=== PATIENT | male | born 1960 | race Caucasian/White ===

== ENCOUNTER 2018-12-27 13:54 | Emergency (ER) | payer MEDICARE, OTHER ==
[~2018-12-27] VITALS: Ht 185.4 cm; Wt 127.0 kg
[~2018-12-27 13:54] MED LIST: CARBAMAZEPINE200 MG PO; CHLORPROMAZINE100 MG PO; CLONAZEPAM1 MG PO; CRESTOR10 MG PO; FENOFIBRATE134 MG PO; INVEGA SUS234 MG/1.5 SQ; METOPROLOL SUCC25 MG PO; TRAZODONE HCL100 MG PO
--- OUTSIDE RECORDS SUMMARY | 2018-12-27 13:58 | XMS REPORT | Summary of Care ---
Author Author [facility] Organization [facility] Address Unknown Phone Unavailable Encounter KAILYN Wesley(SHERRILL) [phone] Date(s): 01/01/17 - 01/02/17 [facility] [id number] [place] [address]- [phone] Discharge Diagnosis: Atrial fibrillation with RVR Discharge Disposition: Home or Self Care Attending Physician: Jolly Rich DO Vital Signs 1 2 3 Most recent to oldest [Reference Range]: 185.42 cm (01/01/17 10:50 PM) Height 98.6 DegF (01/02/17 3:05 AM) 98.6 DegF (01/01/17 10:50 PM) Temperature Oral [96.4-99.1 DegF] 122/68 mmHg (01/02/17 3:05 AM) 133/90 mmHg (01/02/17 12:01 AM) 133/90 mmHg (01/01/17 11:35 PM) Blood Pressure [90-140/60-90 mmHg] 20 BRMIN (01/02/17 3:05 AM) 22 BRMIN *HI* (01/02/17 12:12 AM) 32 BRMIN *HI* (01/02/17 12:01 AM) Respiratory Rate [14-20 BRMIN] 92 bpm (01/02/17 3:05 AM) 134 bpm *HI* (01/01/17 11:35 PM) 125 bpm *HI* (01/01/17 10:50 PM) Peripheral Pulse Rate [60-100 bpm] 104.545 kg (01/01/17 10:50 PM) Weight 30.41 m2 (01/01/17 10:50 PM) Body Mass Index Problem List Condition Effective Dates Status Health Status Informant HTN Active (hypertension)(Confi rmed) TN (myocardial Resolved infarction)(Confirme d) Schizophrenia(Confir Active med) Allergies, Adverse Reactions, Alerts Substance Reaction Severity Status acetaminophen Ibuprofen Active aspirin Active NKDA Active Medications Cardizem 25 mg, 5 mL, Route: IVP, Drug form: INJ, ONCE, Dosing Weight 104.545, kg, Priori ty: STAT, Start date: 01/01/17 23:44:00 TRANSPORTATION MANAGER, Stop date: 01/01/17 23:44:00 TRANSPORTATION MANAGER Notes: (Same as: Cardizem) Start Date: 01/01/17 Stop Date: 01/02/17 Status: Completed Results ELECTROLYTES Most recent to 1 oldest [Reference Range]: Sodium Lvl [135-145 141 mEq/L mEq/L] (01/01/17 11:33 PM) Potassium Lvl 5.1 mEq/L [3.5-5.1 mEq/L] (01/01/17 11:33 PM) Chloride Lvl [95-109 108 mEq/L mEq/L] (01/01/17 11:33 PM) CO2 [24-32 mEq/L] 25 mEq/L (01/01/17 11:33 PM) AGAP [10.0-20.0 13.1 mEq/L mEq/L] (01/01/17 11:33 PM) CHEM PANEL Most recent to 1 oldest [Reference Range]: Creatinine Lvl 0.79 mg/dL [0.50-1.40 mg/dL] (01/01/17 11:33 PM) eGFR 102 mL/min/1.73m2 1 *NA* (01/01/17 11:33 PM) BUN [7-22 mg/dL] 9 mg/dL (01/01/17 11:33 PM) B/C Ratio [6-25] 11 (01/01/17 11:33 PM) Glucose Lvl [70-99 89 mg/dL mg/dL] (01/01/17 11:33 PM) Total Protein 7.0 g/dL [6.4-8.4 g/dL] (01/01/17 11:33 PM) Albumin Lvl [3.5-5.0 3.6 g/dL g/dL] (01/01/17 11:33 PM) Globulin [2.7-4.2 3.4 g/dL g/dL] (01/01/17 11:33 PM) A/G Ratio [0.7-1.6] 1.1 (01/01/17 11:33 PM) Calcium Lvl 8.5 mg/dL [8.5-10.5 mg/dL] (01/01/17 11:33 PM) ALT [0-65 unit/L] 27 unit/L (01/01/17 11:33 PM) AST [0-37 unit/L] 35 unit/L (01/01/17 11:33 PM) Alk Phos [39-136 79 unit/L unit/L] (01/01/17 11:33 PM) Bili Total [0.2-1.3 0.3 mg/dL mg/dL] (01/01/17 11:33 PM) 1Result Comment: The eGFR is calculated using the CKD-EPI formula. In most young, healthy individuals the eGFR will be >90 mL/min/1.73m2. The eGFR declines with age. An eGFR of 60-89 may be normal in some populations, particularly the elderly, for whom the CKD-EPI formula has not been extensively validated. Use of the eGFR is not recommended in the following populations: Individuals with unstable creatinine concentrations, including patients and those with serious co-morbid conditions. Patients with extremes in muscle mass or diet. The data above are obtained from the National Kidney Disease Education Program ( NKDEP) which additionally recommends that when the eGFR is used in patients with extremes of body mass index for purposes of drug dosing, the eGFR should be mul tiplied by the estimated BMI. CARDIAC ENZYMES Most recent to 1 oldest [Reference Range]: Total CK [12-191 337 unit/L unit/L] *HI* (01/01/17 11:33 PM) CK MB [0.5-3.6 3.1 ng/mL ng/mL] (01/01/17 11:33 PM) CK MB Index 0.9 [0.0-2.5] (01/01/17 11:33 PM) Troponin-I <0.02 ng/mL [0.00-0.40 ng/mL] (01/01/17 11:33 PM) BNP [<=100 pg/mL] 36 pg/mL (01/01/17 11:33 PM) DRUG SCREEN Most recent to 1 oldest [Reference Range]: U Amph Scr Negative [Negative] (01/01/17 11:34 PM) U Shira Scr Negative [Negative] (01/01/17 11:34 PM) U Benzodia Scr Negative [Negative] (01/01/17 11:34 PM) U Cocaine Scr Negative [Negative] (01/01/17 11:34 PM) U Opiate Scr Negative [Negative] (01/01/17 11:34 PM) U Phencyc Scr Negative [Negative] (01/01/17 11:34 PM) U Cannab Scr Negative [Negative] (01/01/17 11:34 PM) UDS Note See Note (01/01/17 11:34 PM) URINE AND STOOL Most recent to 1 oldest [Reference Range]: UA Turbidity [Clear] Clear (01/01/17 11:33 PM) UA Color Ltyellow *NA* (01/01/17 11:33 PM) UA pH [5.0-8.0] 7.0 (01/01/17 11:33 PM) UA Spec Grav 1.009 [<=1.030] (01/01/17 11:33 PM) UA Glucose [Negative Negative mg/dL mg/dL] *NA* (01/01/17 11:33 PM) UA Blood [Negative] Negative (01/01/17 11:33 PM) UA Ketones [Negative Negative mg/dL mg/dL] *NA* (01/01/17 11:33 PM) UA Protein [Negative Negative mg/dL mg/dL] (01/01/17 11:33 PM) UA Urobilinogen <=1.0 mg/dL [0.1-1.0 mg/dL] *NA* (01/01/17 11:33 PM) UA Bili [Negative] Negative *NA* (01/01/17 11:33 PM) UA Leuk Est Negative [Negative] (01/01/17 11:33 PM) UA Nitrite Negative [Negative] (01/01/17 11:33 PM) UA WBC [0-5 /HPF] <1 /HPF (01/01/17 11:33 PM) UA RBC [0-2 /HPF] <1 /HPF (01/01/17 11:33 PM) UA Sq Epi None Seen *NA* (01/01/17 11:33 PM) HEMATOLOGY Most recent to 1 oldest [Reference Range]: WBC [3.7-10.4 K/CMM] 12.0 K/CMM *HI* (01/01/17:33 PM) RBC [4.70-6.10 6.10 M/CMM M/CMM] (01/01/17:33 PM) Hgb [14.0-18.0 g/dL] 19.0 g/dL *HI* (01/01/1733 PM) Hct [42.0-54.0 %] 55.7 % *HI* (01/01/17:33 PM) MCV [80.0-94.0 fL] 91.2 fL (01/01/17: PM) MCH [27.0-31.0 pg] 31.1 pg *HI* (01/01/17:33 PM) MCHC [32.0-36.0 34.1 g/dL g/dL] (01/01/17:33 PM) RDW [11.5-14.5 %] 13.0 % (01/01/17:33 PM) Platelet [133-450 201 K/CMM K/CMM] (01/01/17:33 PM) MPV [7.4-10.4 fL] 8.1 fL (01/01/17:33 PM) Segs [45.0-75.0 %] 60.2 % (01/01/17:33 PM) Lymphocytes 26.5 % [20.0-40.0 %] (01/01/17:33 PM) Monocytes [2.0-12.0 9.9 % %] (01/01/17 11:33 PM) Eosinophils [0.0-4.0 2.2 % %] (01/01/17 11:33 PM) Basophils [0.0-1.0 1.2 % %] *HI* (01/01/17:33 PM) Segs-Bands # 7.2 K/CMM [1.5-8.1 K/CMM] (01/01/17:33 PM) Lymphocytes # 3.2 K/CMM [1.0-5.5 K/CMM] (01/01/17 11:33 PM) Monocytes # [0.0-0.8 1.2 K/CMM K/CMM] *HI* (01/01/17 11:33 PM) Eosinophils # 0.3 K/CMM [0.0-0.5 K/CMM] (01/01/17 11:33 PM) Basophils # [0.0-0.2 0.1 K/CMM K/CMM] (01/01/17 11:33 PM) PT [12.0-14.7 12.0 seconds seconds] (01/02/17 12:12 AM) INR [0.85-1.17] 0.87 (01/02/17 12:12 AM) PTT [22.9-35.8 30.1 seconds seconds] (01/02/17 12:12 AM) Immunizations Given and Recorded Vaccine Date Status Refusal Reason diphtheria/pertussis, acel/tetanus adult 11/24/14 Given Procedures No data available for this section Social History Social History Type Response Substance Abuse Use: None. Alcohol Never Smoking Status Current every day smoker; Type: Cigarettes; Exposure to Tobacco Smoke Unable to obtain; Cigarette Smoking Last 365 Days Yes; Reg Smoking Cessation Counseling No Assessment and Plan No data available for this section
--- OUTSIDE RECORDS SUMMARY | 2018-12-27 13:58 | XMS REPORT | Continuity of Care Document ---
Author Author [facility] Interface Address Unknown Phone Unavailable Problems Problem Status Onset Date Classification Date Reported Comments Source Discharge Diagnosis: Atrial fibrillation with RVR 01/02/2017 01/05/2017 [facility] A FIB Active 01/01/2017 [facility] HTN (<span ID="[id number]">Confirmed</span>) Active Problem 01/05/2017 [facility] HI (<span ID="[id number]">Confirmed</span>) Resolved Problem 01/05/2017 [facility] Schizophrenia Active Problem 01/05/2017 [facility] Medications Medication Details Route Status Patient Instructions Ordering Provider Order Date Source Cardizem 25 mg, 5 mL, Route: IVP, Drug form: INJ, ONCE, Dosing Weight 104.545, kg, Priority: STAT, Start date: 01/01/17 23:44:00 CISSP, Stop date: 01/01/17 23:44:00 CSTNotes: (Same as: Cardizem) No Longer Active 01/02/2017 [facility] Allergies, Adverse Reactions, Alerts Substance Category Reaction Severity Reaction type Status Date Reported Comments Source acetaminophen Assertion Ibuprofen Drug allergy Active [facility] aspirin Assertion Drug allergy Active [facility] Immunizations Immunization Date Given Site Status Last Updated Comments Source diphtheria/pertussis, acel/tetanus adult 11/25/2014 Right Deltoid completed Leah [facility] Results Order Name Results Value Reference Range Date Interpretation Comments Source HEMATOLOGY PTT 30.1 s 22.9 - 35.8 01/02/2017 [facility] HEMATOLOGY PT 12.0 s 12.0 - 14.7 01/02/2017 [facility] HEMATOLOGY INR 0.87 0.85 - 1.17 01/02/2017 [facility] DRUG SCREEN U Cocaine Scr Negative (01/01/17 11:34 PM) Negative 01/02/2017 [facility] DRUG SCREEN U Benzodia Scr Negative (01/01/17 11:34 PM) Negative 01/02/2017 [facility] DRUG SCREEN UDS Note See Note (01/01/17 11:34 PM) 01/02/2017 [facility] DRUG SCREEN U Phencyc Scr Negative (01/01/17 11:34 PM) Negative 01/02/2017 [facility] DRUG SCREEN U Opiate Scr Negative (01/01/17 11:34 PM) Negative 01/02/2017 [facility] DRUG SCREEN U Cannab Scr Negative (01/01/17 11:34 PM) Negative 01/02/2017 [facility] DRUG SCREEN U Amph Scr Negative (01/01/17 11:34 PM) Negative 01/02/2017 [facility] DRUG SCREEN U Shira Scr Negative (01/01/17 11:34 PM) Negative 01/02/2017 [facility] CARDIAC ENZYMES CK MB Index 0.9 0.0 - 2.5 01/02/2017 [facility] CARDIAC ENZYMES Troponin-I null 0.00 - 0.40 01/02/2017 [facility] CARDIAC ENZYMES Total CK 337 unit/L 12 - 191 01/02/2017 [facility] CARDIAC ENZYMES CK MB 3.1 ng/mL 0.5 - 3.6 01/02/2017 [facility] CARDIAC ENZYMES BNP 36 pg/mL <=100 pg/mL 01/02/2017 [facility] CHEM PANEL eGFR 102 mL/min/1.73m2 01/02/2017 Result Comment: The eGFR is calculated using the [...] from the National Kidney Disease Education Program (NKDEP) which additionally recommends that when the eGFR is used in patients with extremes of body mass index for purposes of drug dosing, the eGFR should be multiplied by the estimated BMI. [facility] CHEM PANEL A/G Ratio 1.1 0.7 - 1.6 01/02/2017 [facility] CHEM PANEL Alk Phos 79 unit/L 39 - 136 01/02/2017 [facility] CHEM PANEL Bili Total 0.3 mg/dL 0.2 - 1.3 01/02/2017 [facility] CHEM PANEL AST 35 unit/L 0 - 37 01/02/2017 [facility] CHEM PANEL AGAP 13.1 meq/L 10.0 - 20.0 01/02/2017 [facility] CHEM PANEL B/C Ratio 11 6 - 25 01/02/2017 [facility] CHEM PANEL Albumin Lvl 3.6 g/dL 3.5 - 5.0 01/02/2017 [facility] CHEM PANEL ALT 27 unit/L 0 - 65 01/02/2017 [facility] CHEM PANEL Total Protein 7.0 g/dL 6.4 - 8.4 01/02/2017 [facility] CHEM PANEL Potassium Lvl 5.1 meq/L 3.5 - 5.1 01/02/2017 [facility] CHEM PANEL Chloride Lvl 108 meq/L 95 - 109 01/02/2017 [facility] CHEM PANEL CO2 25 meq/L 24 - 32 01/02/2017 [facility] CHEM PANEL Calcium Lvl 8.5 mg/dL 8.5 - 10.5 01/02/2017 [facility] CHEM PANEL Sodium Lvl 141 meq/L 135 - 145 01/02/2017 [facility] CHEM PANEL Glucose Lvl 89 mg/dL 70 - 99 01/02/2017 [facility] CHEM PANEL BUN 9 mg/dL 7 - 22 01/02/2017 [facility] CHEM PANEL Globulin 3.4 g/dL 2.7 - 4.2 01/02/2017 [facility] CHEM PANEL Creatinine Lvl 0.79 mg/dL 0.50 - 1.40 01/02/2017 [facility] HEMATOLOGY Monocytes 9.9 % 2.0 - 12.0 01/02/2017 [facility] HEMATOLOGY Basophils # 0.1 K/CMM 0.0 - 0.2 01/02/2017 [facility] HEMATOLOGY Eosinophils # 0.3 K/CMM 0.0 - 0.5 01/02/2017 [facility] HEMATOLOGY Monocytes # 1.2 K/CMM 0.0 - 0.8 01/02/2017 [facility] HEMATOLOGY Lymphocytes 26.5 % 20.0 - 40.0 01/02/2017 [facility] HEMATOLOGY Segs 60.2 % 45.0 - 75.0 01/02/2017 [facility] HEMATOLOGY Lymphocytes # 3.2 K/CMM 1.0 - 5.5 01/02/2017 [facility] HEMATOLOGY Segs-Bands # 7.2 K/CMM 1.5 - 8.1 01/02/2017 [facility] HEMATOLOGY Basophils 1.2 % 0.0 - 1.0 01/02/2017 [facility] HEMATOLOGY Eosinophils 2.2 % 0.0 - 4.0 01/02/2017 [facility] MCHC 34.1 g/dL 32.0 - 36.0 01/02/2017 [facility] HEMATOLOGY RDW 13.0 % 11.5 - 14.5 01/02/2017 [facility] HEMATOLOGY Platelet 201 K/CMM 133 - 450 01/02/2017 [facility] MPV 8.1 fL 7.4 - 10.4 01/02/2017 [facility] MCH 31.1 pg 27.0 - 31.0 01/02/2017 [facility] Hgb 19.0 g/dL 14.0 - 18.0 01/02/2017 [facility] Hct 55.7 % 42.0 - 54.0 01/02/2017 [facility] MCV 91.2 fL 80.0 - 94.0 01/02/2017 [facility] WBC 12.0 K/CMM 3.7 - 10.4 01/02/2017 [facility] RBC 6.10 M/CMM 4.70 - 6.10 01/02/2017 [facility] URINE AND STOOL UA Color Ltyellow 01/02/2017 [facility] URINE AND STOOL UA Urobilinogen <=1.0 mg/dL 0.1 - 1.0 01/02/2017 [facility] URINE AND STOOL UA Sq Epi None Seen 01/02/2017 [facility] URINE AND STOOL UA Spec Grav 1.009 <=1.030 01/02/2017 [facility] URINE AND STOOL UA Turbidity Clear (01/01/17 11:33 PM) Clear 01/02/2017 [facility] URINE AND STOOL UA RBC null 0 - 2 01/02/2017 [facility] URINE AND STOOL UA Glucose Negative mg/dL Negative mg/dL 01/02/2017 [facility] URINE AND STOOL UA Ketones Negative mg/dL Negative mg/dL 01/02/2017 [facility] URINE AND STOOL UA Bili Negative *NA* (01/01/17 11:33 PM) Negative 01/02/2017 [facility] URINE AND STOOL UA WBC null 0 - 5 01/02/2017 [facility] URINE AND STOOL UA Leuk Est Negative (01/01/17 11:33 PM) Negative 01/02/2017 [facility] URINE AND STOOL UA Protein Negative mg/dL Negative mg/dL 01/02/2017 [facility] URINE AND STOOL UA Nitrite Negative (01/01/17 11:33 PM) Negative 01/02/2017 [facility] URINE AND STOOL UA Blood Negative (01/01/17 11:33 PM) Negative 01/02/2017 [facility] URINE AND STOOL UA pH 7.0 5.0 - 8.0 01/02/2017 [facility] Chest 1view DX Chest 1view DX Patient Name: JOANN FORD : 1960; Age: 56 years y/o Male MR: [id number] Study: Chest 1view DX dated 01/01/2017. Clinical Indication: Chest pain; Comparison: None Heart size is normal. Aortic calcification. Mediastinal structures otherwise unremarkable. Slight atelectasis in the lateral left lung base. No other focal infiltrate identified within the lungs, no edema and no pneumothorax. SL: TRINA 01/01/2017 - - Read by: Alan Jaramillo MD Dictated Date/time: 01/01/17 23:49 Electronically Signed by: Alan Jaramillo MD 01/01/17 23:50 FINAL REPORT [facility] Vital Signs Vital Sign Value Date Comments Source Systolic (mm Hg) 122 01/02/2017 [facility] Diastolic (mm Hg) 68 01/02/2017 [facility] Respitory Rate 20 01/02/2017 [facility] Temperature Oral (F) 98.6 F 01/02/2017 [facility] Heart Rate 92 01/02/2017 [facility] Respitory Rate 22 01/02/2017 [facility] Respitory Rate 32 01/02/2017 [facility] Systolic (mm Hg) 133 01/02/2017 [facility] Diastolic (mm Hg) 90 01/02/2017 [facility] Heart Rate 134 01/02/2017 [facility] Systolic (mm Hg) 133 01/02/2017 [facility] Diastolic (mm Hg) 90 01/02/2017 [facility] Heart Rate 125 01/02/2017 [facility] Temperature Oral (F) 98.6 F 01/02/2017 [facility] Height 185.42 cm 01/02/2017 [facility] Weight 104.545 01/02/2017 [facility] BMI Calculated 30.41 01/02/2017 [facility] Encounters Location Location Details Encounter Type Encounter Number Reason For Visit Attending Provider ADM Date DC Date Status Source Outpatient [id number] ALEJANDRO LEBRON 04/25/2015 Active [facility] [id number] Jolly Rich 01/02/2017 01/02/2017 [facility] [id number] HEATHER RICH 07/15/2017 Active [facility] Procedures Procedure Code Date Perfomer Comments Source
--- NOTE | 2018-12-27 15:57 | Diagnostic Imaging Report ---
EXAMINATION: PA and lateral views of the chest. COMPARISON: None CLINICAL HISTORY: Pain DISCUSSION: Lines/tubes: None. Lungs: The lungs are well inflated and clear. No pneumonia or pulmonary edema. Pleura: No pleural effusion or pneumothorax. Heart and mediastinum: The cardiomediastinal silhouette is normal. Bones and soft tissues: No acute bony abnormalities. IMPRESSION: No acute cardiopulmonary abnormalities. Signed by: Dr. Vikas Dunn M.D. on 12/27/2018 3:54 PM
[2018-12-27] MEDS ORDERED: ASPIRIN81 MG (15:58)
--- NOTE | 2018-12-27 17:50 | Diagnostic Imaging Report ---
EXAMINATION: CT scan of the chest with contrast. TECHNIQUE: Helical CT images of the chest were performed from the lung apices to the level of the adrenal glands after the intravenous administration of 100 cc of Omnipaque 300. Coronal and sagittal reformatted images were obtained.Dose modulation, iterative reconstruction, and/or weight based adjustment of the mA/kV was utilized to reduce the radiation dose to as low as reasonably achievable. COMPARISON: None. CLINICAL HISTORY:Chest pain DISCUSSION: LINES/TUBES: None. LUNGS AND AIRWAYS: No pulmonary embolism. No consolidation. Groundglass attenuation of the lung hypoinflation. PLEURA: No pneumothorax or pleural effusions. HEART AND MEDIASTINUM: The thyroid gland is normal. The heart and pericardium are within normal limits. LYMPH NODES: There is no mediastinal, hilar or axillary lymphadenopathy. ABDOMEN: Simple right renal cyst. BONES AND SOFT TISSUES: No acute bony abnormalities. IMPRESSION: No pulmonary embolism Signed by: Dr. Vikas Dunn M.D. on 12/27/2018 5:47 PM
[2018-12-27 18:43] VITALS: BP 139/92
== END 2018-12-27 18:40 | disposition home or self-care (01) ==
LOC: FSED 13:54
DX: R07.89 Other chest pain (principal); I10 Essential (primary) hypertension; J44.9 Chronic obstructive pulmonary disease, unspecified; I48.91 Unspecified atrial fibrillation; F20.9 Schizophrenia, unspecified; F17.210 Nicotine dependence, cigarettes, uncomplicated
CPT/HCPCS: 71046; 71275; 80053; 81003; 83880; 84484; 85025; 85610; 93005; 99284

== ENCOUNTER 2022-06-29 16:33 | Emergency (ER) | payer MEDICARE, OTHER ==
[~2022-06-29] VITALS: Ht 180.3 cm; Wt 101.4 kg
[~2022-06-29 16:33] MED LIST changes: +ASPIRIN81 MG
[2022-06-29] MEDS ORDERED: TEGRETOL200 MG PO (16:58)
[2022-06-29] MEDS ORDERED: ATORVASTATIN CA20 MG PO (16:58)
[2022-06-29] MEDS ORDERED: NEURONTIN400 MG PO (16:58)
[2022-06-29] MEDS ORDERED: DIGOXIN125 MCG PO (17:03)
[2022-06-29] MEDS ORDERED: TRAMADOL HCL E100 MG (17:23)
== END 2022-06-29 18:32 | disposition home or self-care (01) ==
LOC: FSED 16:55
DX: R07.89 Other chest pain (principal); S20.211A Contusion of right front wall of thorax, initial encounter; W20.8XXA Other cause of strike by thrown, projected or falling object, initial encounter; Y92.89 Other specified places as the place of occurrence of the external cause; F17.210 Nicotine dependence, cigarettes, uncomplicated
CPT/HCPCS: 71101; 99283

== ENCOUNTER 2022-08-11 16:18 | Emergency (ER) | payer MEDICARE, OTHER ==
[~2022-08-11] VITALS: Ht 180.3 cm; Wt 99.4 kg
[~2022-08-11 16:18] MED LIST changes: +ATORVASTATIN CA20 MG PO; +DIGOXIN125 MCG PO; +NEURONTIN400 MG PO; +TEGRETOL200 MG PO; +TRAMADOL HCL E100 MG
[2022-08-11] MEDS ORDERED: ULTRAM 50MG50 MG PO (16:44)
[2022-08-11] MEDS ORDERED: PREDNISONE50 MG PO (16:44)
[2022-08-11] MEDS ORDERED: CLONAZEPAM0.5 MG PO (16:46)
== END 2022-08-11 16:52 | disposition home or self-care (01) ==
LOC: FSED 16:46
DX: M54.50 Low back pain, unspecified (principal); X50.0XXA Overexertion from strenuous movement or load, initial encounter; Y92.89 Other specified places as the place of occurrence of the external cause; I10 Essential (primary) hypertension; E78.5 Hyperlipidemia, unspecified; I48.91 Unspecified atrial fibrillation; J44.9 Chronic obstructive pulmonary disease, unspecified; G40.909 Epilepsy, unspecified, not intractable, without status epilepticus; F41.9 Anxiety disorder, unspecified; I25.2 Old myocardial infarction
CPT/HCPCS: 99283